=== PATIENT | male | born 1935 | race Caucasian/White ===

== ENCOUNTER 2017-01-23 12:32 | Emergency (ER) | payer MEDICARE, BC, OTHER ==
[~2017-01-23] VITALS: Ht 177.8 cm; Wt 85.1 kg
[~2017-01-23 12:32] MED LIST: ASPI81TA17 PO; CART240C4 PO; DIGO0.25 PO; OMEP40CA2 PO; ORPH100T PO; TRAM50 PO; WARF1TAB OR; WARF7.5T4 PO
[2017-01-23 12:50] VITALS: BP 151/72; PULSE 59; RESP 16; TEMP 98.1; O2SAT 97
[2017-01-23] MEDS ORDERED: OMEP40CA2 PO (13:08)
[2017-01-23] MEDS ORDERED: WARF-21 PO (13:08)
[2017-01-23] MEDS ORDERED: CART240C PO (13:08)
[2017-01-23] MEDS ORDERED: DIGO0.25 PO (13:08)
[2017-01-23] MEDS ORDERED: ASPI1TAB69 PO (13:08)
[2017-01-23] MEDS ORDERED: TRAM50TA PO (13:12)
--- NOTE | 2017-01-23 13:16 | PD ---
HPI Chief Complaint: ENT Complaint Time Seen by Provider: 13:11 Travel History International Travel<30 days: No Contact w/Intl Traveler<30days: No Traveled to known affect area: No History of Present Illness HPI This patient complains of pain in his neck or his glands are swollen. He's had some runny nose and congestion and felt stopped up. No fever. Symptoms severity is mild PFSH Past Medical History Hx Anticoagulant Therapy: Yes (asa 81mg) Atrial Fibrillation: Yes Cancer: Yes (bladder cancer resolved) Cardiovascular Problems: Yes (htn on meds, afib) High Cholesterol: Yes GERD: Yes Hypertension: Yes Influenza Vaccination: No Past Surgical History Cholecystectomy: Yes Genitourinary Surgery: Yes (BLADDER CA) Social History Alcohol Use: No Tobacco Use: No Substance Use: No Allergies-Medications (Allergen,Severity, Reaction): Coded Allergies: Sulfa (Verified Allergy, Mild, "ANTSY", 01/23/17) Reported Meds & Prescriptions Reported Meds & Active Scripts Active Reported Warfarin 7.5 Mg Tab 7.5 Mg PO DAILY Omeprazole 40 Mg Cap 40 Mg PO DAILY Digoxin 0.25 Mg Tab 0.25 Mg PO DAILY Cartia Xt (Diltiazem ER 24 HR) 240 Mg Caper 240 Mg PO DAILY Aspirin 81 Mg Tabdr 81 Mg PO DAILY Review of Systems General / Constitutional: No: Fever HENT: No: Headaches Cardiovascular: No: Chest Pain or Discomfort Respiratory: No: Shortness of Breath Physical Exam Narrative NECK: Symmetrical appearance, midline trachea. No mass or crepitus. Thyroid without enlargement, tenderness, or mass. He has bilateral tender submandibular lymphadenopathy Throat clear TMs normal SKIN: Focused skin assessment reveals no rash or ulcers. Skin is warm and dry. Palpation shows no induration or nodules. Psych: Normal mood and affect. Normal insight and judgment. Data Data Last Documented VS Vital Signs Date Time Temp Pulse Resp B/P Pulse Ox O2 Delivery O2 Flow Rate FiO2 01/23/17 12:50 98.1 59 16 151/72 97 MDM Medical Decision Making Medical Screen Exam Complete: Yes Emergency Medical Condition: Yes Medical Record Reviewed: Yes Differential Diagnosis Pharyngitis, URI, flu syndrome Narrative Course I have reviewed the patient's electronic medical record. Presentation seems most consistent with URI, he has some lymphadenopathy she's not unexpected Wrote him some tramadol as he wants something for pain No indication for antibiotics Gradual resolution is expected The patient was advised to follow up with their physician and return if they worsen. Diagnosis Primary Impression: Viral upper respiratory tract infection Additional Impression: Lymphadenopathy of head and neck region Additional Instructions: The patient was advised to follow up with their physician and return if they worsen.The patient was warned about potential sedation for the medications they will receive on prescription. Med/Other Pt SpecificInfo: Prescription(s) given Scripts Tramadol 50 Mg Tab50 Mg PO Q6H PRN (PAIN) #12 TAB Ref 0 Prov:Chad Gregorio MD 01/23/17 Disposition: DISCHARGE HOME Condition: Stable Chad Gregorio MD Jan 23, 2017 13:16
== END 2017-01-23 13:30 | disposition home or self-care (01) ==
LOC: PHEFT 12:32
DX: J06.9 Acute upper respiratory infection, unspecified (principal); R59.1 Generalized enlarged lymph nodes; E78.00 Pure hypercholesterolemia, unspecified; I10 Essential (primary) hypertension; I48.91 Unspecified atrial fibrillation; Z85.51 Personal history of malignant neoplasm of bladder; Z79.82 Long term (current) use of aspirin
CPT/HCPCS: 99283